=== PATIENT | male | born 1980 | race Caucasian/White ===

== ENCOUNTER 2021-08-14 16:09 | Emergency (ER) | payer MEDICAID ==
[~2021-08-14] VITALS: Ht 175.3 cm; Wt 61.2 kg
--- NOTE | 2021-08-14 16:27 | NUR ---
BIBFAMILY C/O ABDOMINAL PAIN 11/15, NAUSEA AND VOMITING STARTED YESTERDAY CANNOT KEEP ANYTHING DOWN. IN ROOM AIR AND DENIES SOB. RESPIRATION REGULAR AND UNLABORED. WILL CONTINUE TO MONITOR TYHE PATIENT.
--- NOTE | 2021-08-14 16:28 | NUR ---
URINE COLLECTED AND SENT TO LAB
--- NOTE | 2021-08-14 16:50 | NUR ---
TAKEN TO CT
[2021-08-14] MEDS ORDERED: ONDANSETRON HCL/PF 4 MG/2 ML VIAL ONE (17:00)
[2021-08-14] MEDS ORDERED: ONDANSETRON HCL/PF 4 MG/2 ML VIAL IVP ONE (17:00)
[2021-08-14] MEDS ORDERED: IV NS 0.9% 1,000 ML BAG IV ONE (17:00)
--- NOTE | 2021-08-14 17:10 | NUR ---
THE PATIENT IS BACK FROM CT VIA [facility]
[2021-08-14 17:15] LABS: BASOPHILS % (AUTO) 0.2 % (0.0-2.0); EOSINOPHILS % (AUTO) 0.3 % (0.0-6.0); HEMATOCRIT 42 % (39-51); HEMOGLOBIN 14.4 g/dL (13.5-17.5); LYMPHOCYTES # (AUTO) 0.8 K/uL (0.8-4.8); LYMPHOCYTES % (AUTO) 19.7 % (20.0-44.0); MEAN CORPUSCULAR HGB CONC 34 g/dl (31.0-36.0); MEAN CORPUSCULAR VOLUME 93 fL (80-96); MONOCYTES # (AUTO) 0.4 K/uL (0.1-1.30); MONOCYTES % (AUTO) 10.2 % (2.0-12.0); NEUTROPHILS # (AUTO) 2.8 K/uL (1.8-8.9); NEUTROPHILS % (AUTO) 69.6 % (43.0-81.0); PLATELET COUNT (AUTO) 142 K/uL (150-450); RED BLOOD CELL COUNT(AUTO) 4.56 MIL/uL (4.5-6.0)
[2021-08-14 17:31] LABS: CALCIUM, SERUM 8.8 mg/dL (8.5-10.1); POTASSIUM 3.1 mmol/L (3.5-5.1)
[2021-08-14 17:35] LABS: ALBUMIN 3.8 g/dL (3.4-5.0); BILIRUBIN,DIRECT 0.2 mg/dL (0.0-0.2); TOTAL PROTEIN, SERUM 7.1 g/dL (6.4-8.2)
[2021-08-14 17:42] LABS: BILIRUBIN,URINE SMALL (NEGATIVE); COLOR,URINE DARK YELLOW (YELLOW); LEUKOCYTE ESTERASE ,URINE NEGATIVE (NEGATIVE); NITRITE, URINE NEGATIVE (NEGATIVE); PROTEIN,URINE TRACE mg/dl (NEGATIVE); UGLUCOSE NEGATIVE (NEGATIVE); UROBILINOGEN,URINE >=8.0 EU/dL (0.2)
[2021-08-14] MEDS ORDERED: POTASSIUM CHLORIDE 20 MEQ TAB.PRT.SR PO ONE ×2 (18:00)
[2021-08-14] MEDS ORDERED: POTA-58 PO ×2 (18:03→18:09)
[2021-08-14] MEDS ORDERED: ONDA4TAB5 PO ×2 (18:03→18:09)
[2021-08-14] MEDS ORDERED: TRAM50TA2 PO ×2 (18:03→18:09)
[2021-08-14 18:24] VITALS: BP 105/67
--- NOTE | 2021-08-14 18:24 | NUR ---
IV removed. Catheter intact and site benign. Pressure and 4x4 applied to site. No bleeding noted.Patient discharged to home in stable condition. Written and verbal after care instructions given. Patient verbalizes understanding of instruction.
== END 2021-08-14 18:25 | disposition home or self-care (01) ==
LOC: ER 16:11
DX: G89.29 Other chronic pain (principal); R10.84 Generalized abdominal pain; R10.13 Epigastric pain; R11.2 Nausea with vomiting, unspecified
CPT/HCPCS: 36415; 74176; 80048; 80076; 81003; 83690; 85025; 96361; 96374; 99284; J2405; J7030